=== PATIENT | male | born 1980 | race Caucasian/White ===

== ENCOUNTER 2019-06-08 10:02 | Emergency (ER) | payer OTHER, SELFPAY ==
[2019-06-08 10:32] VITALS: BP 127/81; PULSE 71; RESP 20; TEMP 36.3; O2SAT 99
--- NOTE | 2019-06-08 10:44 | ED.URI ---
HPI - URI/Sore Throat General Chief Complaint: Upper Respiratory Infection Stated Complaint: sore throat Time Seen by Provider: 06/08/19 10:40 Source: patient Mode of arrival: ambulatory Limitations: no limitations History of Present Illness HPI Narrative: Joselito Weinstein is a 38 yo male with PMH of HTN who copmes to express care with sore throat. x 2 days Related Data Allergies Allergy/AdvReac Type Severity Reaction Status Date / Time No Known Allergies Allergy Mild Unverified 06/08/19 10:33 Review of Systems Review of Systems: Narrative: CONSTITUTIONAL: Denies fever, chills, sweats. EYES: Denies visual changes, redness, discharge. ENT: Denies rhinorrhea, congestion, sore throat, otalgia. CARDIOVASCULAR: Denies chest pain, palpitations, edema. RESPIRATORY: Denies dyspnea, wheezing, cough GASTROINTESTINAL: Denies abdominal pain, nausea, vomiting, diarrhea. GENITOURINARY: Denies dysuria, hematuria, abnormal discharge SKIN: Denies rash or itching. MUSCULOSKELETAL: Denies acute back pain, joint pain, or myalgia. NEUROLOGIC: Denies numbness, or focal weakness. PSYCHIATRIC: Denies anxiety or depression. PMFSH Social History Social History Smoking status: Never smoker Alcohol intake: current Comments At time of signature, I agree with nursing past medical, surgical, social and family history. There is no relevant family history pertinent to the presenting complaint. Exam Narrative: Exam Narrative: GENERAL: This is a well-nourished, well-developed patient, in mild apparent distress. HEAD: normocephalic, atraumatic. EYES: PERRL. Sclera clear/white. Vision is grossly intact. EARS: External ears normal, TMs normal without perforation. Hearing grossly intact. NOSE: External nose normal with no obvious nasal discharge, nares without redness, no rhinorrhea. THROAT: Mucous membranes moist, posterior pharynx erythema and 2+ tonsilar edema NECK: Neck supple, non-tender without lymphadenopathy, . CARDIOVASCULAR: Regular rate and rhythm without murmurs, gallops, or rubs. RESPIRATORY: Clear to auscultation. Breath sounds equal bilaterally. No wheezes, rales, or rhonchi. GASTROINTESTINAL: Abdomen soft, non-tender, SKIN: warm, intact with no suspicious lesions or rash, NEURO: awake, alert, and oriented to person, place and time. There were no obvious focal neurologic abnormalities. Steady gait EXTREMITIES: Normal range of motion. No edema. BACK: Nontender without deformity or crepitance. No flank tenderness. Course Course Emergency Course: raid strep- sent for cx started with PCN Vital Signs Vital signs: Vital Signs Temperature 97.3 F L 06/08/19 10:32 Pulse Rate 71 06/08/19 10:32 Respiratory Rate 20 06/08/19 10:32 Blood Pressure 127/81 06/08/19 10:32 Pulse Oximetry 99 06/08/19 10:32 Temperature 97.3 F L 06/08/19 10:32 Pulse Rate 71 06/08/19 10:32 Respiratory Rate 20 06/08/19 10:32 Blood Pressure 127/81 06/08/19 10:32 Pulse Oximetry 99 06/08/19 10:32 MDM - URI/Sore Throat Differential Diagnosis Differential diagnosis: Likely pharyngitis and other (strep) Lab Data Labs: Strep Screen Presumptive Negative *(Reference Range: Negative)* Discharge Plan Discharge Clinical Impression: Pharyngitis Qualifiers: Pharyngitis/tonsillitis etiology: unspecified etiology Qualified Code(s): J02.9 - Acute pharyngitis, unspecified Patient Disposition: Home, Self-Care Condition: Stable Instructions: Antibiotic Form, Strep Throat (DC) Prescriptions: New penicillin V potassium 500 mg tablet 500 mg PO Q8H Qty: 30 RF: 0 prednisone 20 mg tablet 40 mg PO DAILY 5 Days Qty: 10 RF: 0 No Action lisinopril 5 mg tablet 5 mg PO DAILY Qty: 30 RF: 0 Follow-up/Referrals: Ranjan Myers DO [Primary Care Provider] - Stand Alone Forms: Work/School Release IP Time of Disposition
== END 2019-06-08 11:04 | disposition home or self-care (01) ==
PROVIDERS: Emergency Provider Nurse Practitioner; PCP Internal Medicine
DX: J02.9 Acute pharyngitis, unspecified (principal); I10 Essential (primary) hypertension
CPT/HCPCS: 87081; 87880; 99213; G0463

== ENCOUNTER 2019-07-05 17:11 | Emergency (ER) | payer OTHER, SELFPAY ==
[2019-07-05 17:25] VITALS: BP 142/97; PULSE 90; RESP 20; TEMP 36.8; O2SAT 99
--- NOTE | 2019-07-05 17:38 | ED.GENADULT ---
HPI - General Adult General Chief complaint: Upper Respiratory Infection Stated complaint: ear pain/cough Time Seen by Provider: 07/05/19 17:38 Source: patient and RN notes reviewed Mode of arrival: ambulatory Limitations: no limitations History of Present Illness HPI narrative: 38-year-old presents with upper respiratory infection, RT ear pain, some facial congestion, facial pressure, and cough for the past 4 days. DayQuil, Zyrtec, NyQuil, and Ibuprofen with little relief. No facial swelling. Dry cough. Nasal congestion and rhinorrhea. Sore throat. Pain is bilateral. Hurts to swallow. No high fevers, drooling, neck or throat swelling. No voice change. Denies ear itching, tinnitus, hearing loss, or trauma. No nausea, vomiting, or abdominal pain. Tolerating liquids well. Denies chills, dyspnea, difficulty swallowing, jaw pain, dental pain, foreign body sensation, and rash. No chest pain or shortness of breath. Some parts of this dictation were generated by voice recognition software and may contain typographical and/or grammatical inaccuracies. Related Data Allergies Allergy/AdvReac Type Severity Reaction Status Date / Time No Known Allergies Allergy Mild Verified 07/05/19 17:15 Review of Systems Review of Systems: Narrative: CONSTITUTIONAL: Denies fever, chills, sweats. EYES: Denies visual changes, redness, discharge. ENT: Complains of rhinorrhea, congestion, facial congestion and pressure, sore throat, RT otalgia. CARDIOVASCULAR: Denies chest pain, palpitations, edema. RESPIRATORY: Denies dyspnea, wheezing. Complains of dry cough. GASTROINTESTINAL: Denies abdominal pain, nausea, vomiting, diarrhea. GENITOURINARY: Denies dysuria, hematuria, abnormal discharge SKIN: Denies rash or itching. MUSCULOSKELETAL: Denies acute back pain, joint pain, or myalgia. NEUROLOGIC: Denies numbness or focal weakness. PSYCHIATRIC: Denies anxiety or depression. All other systems reviewed are negative, except as documented in HPI and below. [facility] Past Medical History Medical History (Updated 07/05/19 @ 17:51 by OLGA Rodrigez) Allergies HTN (hypertension) Motion sickness Surgical History Surgical History (Updated 07/05/19 @ 17:48 by OLGA Rodrigez) No significant past surgical history Family History Family History Father Type 2 diabetes mellitus Mother Hypertension Enlarged heart Social History Social History (Updated 07/05/19 @ 17:48 by OLGA Rodrigez) Smoking status: Never smoker Second hand tobacco smoke exposure: No Alcohol intake: current Substance use: former Living arrangements: with family Occupation/Education: occupation Gender identity (if verbalized by the patient): Male Comments At time of signature, agree with nurse past medical, surgical, social, and family history. There is no relevant family history pertinent to the presenting complaint. Exam Narrative: Exam Narrative: GENERAL: This is a well-nourished, well-developed patient, in no apparent distress. Talks in full sentences and ambulates with steady gait without dyspnea. HEAD: normocephalic, atraumatic. EYES: PERRL. Sclera clear/white. Vision is grossly intact. EARS: Pinna is normal shape and contour. Clear external auditory canals. LT TM pearly atkins with good cone of light, no erythema or suppuration. RT TM moderate erythema and bulging, no drainage or suppuration. No tenderness with manipulation. No gross hearing deficit. NOSE: External nose normal with no obvious nasal discharge, nares with moderate redness and enlarged turbinates, clear rhinorrhea. THROAT: Mucous membranes moist, posterior pharynx with PND, mild-moderate erythema, no exudate, and +1 tonsils. No drainage, no concern for Peritonsillar abscess. No drooling, trismus, or neck swelling. NECK: Neck supple, non-tender without lymphadenopathy, masses or thyromegaly. CARDIOVASCULAR: Regul
== END 2019-07-05 17:57 | disposition home or self-care (01) ==
PROVIDERS: Emergency Provider Nurse Practitioner Family; PCP Internal Medicine
DX: J40 Bronchitis, not specified as acute or chronic (principal); H66.001 Acute suppurative otitis media without spontaneous rupture of ear drum, right ear; Z87.891 Personal history of nicotine dependence; I10 Essential (primary) hypertension
CPT/HCPCS: 99213; G0463

== ENCOUNTER 2020-04-05 09:51 | Outpatient (NON) | payer OTHER, SELFPAY ==
[2020-04-06 13:43] LABS: SARS-CoV-2 RNA PCR Positive
== END 2020-04-05 09:52 ==
PROVIDERS: PCP Internal Medicine; Visit Provider Nurse Practitioner
DX: U07.1 COVID-19 (principal)
CPT/HCPCS: 87635; C9803; U0003